=== PATIENT | female | born 1995 | race Caucasian/White ===

== ENCOUNTER 2017-12-07 18:07 | Outpatient (CLI) | payer OTHER, MEDICAID | END 2017-12-07 19:07 | disposition home or self-care (01) | LOC: OB 18:07 → L&D 18:07 → UNDOADMOB 18:07 → OB 18:07 → L&D 19:07 → UNDODISOB 19:07 → EDSTATUS 12-09 07:31 | PROVIDERS: ATTEND Obstetrics & Gynecology | DX: O26.893 Other specified pregnancy related conditions, third trimester (principal); Z3A.32 32 weeks gestation of pregnancy | CPT/HCPCS: 59025; 84112; G0378; G0379; 99213 ==

== ENCOUNTER 2018-01-23 14:33 | Outpatient (CLI) | payer OTHER, MEDICAID ==
[~2018-01-23] VITALS: Ht 167.6 cm; Wt 70.3 kg
[2018-01-23 15:00] VITALS: BP 108/69; Ht 167.6 cm; Wt 70.3 kg
[2018-01-23] MEDS ORDERED: FAMO-67 PO (15:51)
[2018-01-23] MEDS ORDERED: PREN-127 PO (15:51)
== END 2018-01-23 16:00 | disposition home or self-care (01) ==
LOC: L&D 14:33 → OB 14:33 → UNDOADMIN 14:33 → L&D 16:00 → UNDODISIN 16:00 → EDSTATUS 01-30 11:00
PROVIDERS: ATTEND Obstetrics & Gynecology
DX: O36.8130 Decreased fetal movements, third trimester, not applicable or unspecified (principal); Z3A.38 38 weeks gestation of pregnancy
CPT/HCPCS: 99213

== ENCOUNTER 2018-02-05 19:00 | Inpatient (IN) | payer OTHER, MEDICAID ==
[~2018-02-05] VITALS: Ht 167.6 cm; Wt 68.0 kg
[~2018-02-05 19:00] MED LIST: FAMO-67 PO; PREN-127 PO
[2018-02-05] MEDS ORDERED: ceFAZolin(*) 2GM/D5W 50ML 50 ML IVPB PRN (19:02)
[2018-02-05] MEDS ORDERED: FAMOTIDINE(*) 20MG/50ML PREMIX 50 ML IVPB PRN (19:02)
[2018-02-05] MEDS ORDERED: ZOLPIDEM TARTRATE 5 MG TAB PO PRN (19:05)
[2018-02-05] MEDS ORDERED: LIDOCAINE/SOD BICARB 8.4% SYR SC PRN (19:05)
[2018-02-05] MEDS ORDERED: LIDOCAINE 1% LOCAL 300 MG/30ML INJ PRN (19:05)
[2018-02-05] MEDS ORDERED: FLUSH 10 ML SYR IVP PRN (19:05)
[2018-02-05] MEDS ORDERED: fentaNYL CITR 100 MCG/2 ML AMP IVP PRN (19:05)
[2018-02-05] MEDS ORDERED: DINOPROSTONE 10 MG INSERT PV ONE (19:05)
[2018-02-05] MEDS ORDERED: METOCLOPRAMIDE 10 MG/2 ML SDV IVP PRN (19:05)
[2018-02-05 19:30] VITALS: BP 124/79; Ht 167.6 cm; Wt 68.0 kg
[2018-02-05] MEDS: LR(*) 1000 ML BAG 1,000 ML IV PRN (20:22)
[2018-02-05 20:30] LABS: PLATELET COUNT, AUTOMATED 149 K/uL (150-450)
[2018-02-06] MEDS ORDERED: ONDANSETRON 4 MG/2 ML VIAL IVP PRN (03:10)
[2018-02-06] MEDS ORDERED: ACETAMINOPHEN 500 MG TAB PO PRN (03:10)
[2018-02-06] MEDS: LR(*) 1000 ML BAG 1,000 ML IV PRN ×2 (10:27→12:06)
[2018-02-06] MEDS ORDERED: EPIDURAL KEYS XX PRN (10:48)
[2018-02-06] MEDS ORDERED: LIDOCAINE/PF 2% 200MG/10ML AMP 200 MG/10 ML AMPUL EPI PRN (10:50)
[2018-02-06] MEDS ORDERED: FENTANYL/ROPIVACAINE 100 ML BAG EPI PRN (10:50)
[2018-02-06] MEDS ORDERED: LIDO/EPI 2% MPF 1:200,000 20ML EPI PRN (10:50)
[2018-02-06] MEDS ORDERED: fentaNYL CITR 100 MCG/2 ML AMP IT PRN (10:50)
[2018-02-06] MEDS ORDERED: BUPIVACAINE 0.5% INJ 30ML VIAL EPI PRN (10:50)
[2018-02-06] MEDS ORDERED: BUPIVACAINE 0.25% MPF INJ EPI PRN (10:50)
[2018-02-06] MEDS ORDERED: ePHEDrine 25 MG/5 ML DISP.SYR IVP PRN (10:50)
--- NOTE | 2018-02-06 11:36 | Anesthesia OB Pre-Anes Eval ---
History of Present Illness Anesthesia Start Date: Feb 06, 2018 Anesthesia Start Time: 11:00 OB Anesthesia Diagnosis: induction - medical (Post dates. Cervidil induction) EDC: Jan 30, 2018 : 1 Para: 0 Vital Signs: Vital Signs Date Time Temp Pulse Resp B/P (MAP) Pulse Ox O2 Delivery O2 Flow Rate FiO2 02/05/18 19:30 98.2 90 14 124/79 (94) 99 Room Air Pain Ratin Result Diagram: 02/05/182010 Height (Inches): 66.00 Weight (Pounds): 150 BMI Calculated: 24.21 Past Medical History Medical History: other (GERD during ) Attended Childbirth Classes?: Yes Hx Anesthesia Reactions: No Hx Family Anesthesia Reaction: No Home Meds Reported Medications Famotidine (FAMOTIDINE) 20 Mg Tablet, 20 MG PO QDAY Y for REFLUX, TAB 01/23/18 Vits W-Ca,Fe,Fa(<1MG) ( VITAMINS) 1 Each Tablet, 1 EACH PO DAILY, TAB 01/23/18 Allergies: Coded Allergies: No Known Drug Allergies (Unverified , 01/23/18) Anesthesia OB ROS Neurological: No migraines/headaches, No seizures, No neuropathy, No other ENT: Denies Tooth caps, Denies Loose teeth, Denies Chipped teeth, Denies Dentures, Denies Bridges, Denies Retainers, Denies Veneers, Denies Implants, Denies Tongue ring, Denies Other Pulmonary: No asthma, No smoker (pks/day/yrs), No other Airway Class: ll Cardiovascular ROS: No edema, No arrhythmia, No other GI ROS: clear liquids ROS: No Herpes, No STD(s), No Liver Disease, No Renal Disease, No Other Endocrine ROS: No diabetes, No gestational diabetes, No thyroid disorder, No other Musculoskeletal ROS: No low back pain, No low back injury, No scoliosis, No other ASA Classification: 1 Assessment and Plan Anesthesia Plan: JOHANNE SAENZ CRNA Feb 06, 2018 11:36
--- NOTE | 2018-02-06 11:48 | Procedure Note ---
Anesthetic Placement Note Anesthesia Plan: LEB Permit for Anesthesia Signed: Yes Anesthesia Technique: Patient Sitting Anesthesia Prep: Chlorhexidine Interspace: L 4-5 Local Anesthetic: 1% Lidocaine, 25 Gauge Needle Amount Local - cc's: 3 Anesthesia Needle: 17g Touhy/Schliff Anesthesia Attempts: 1 Loss of Resistance: Normal Saline Depth of LINDY (cm): 6 Epidural Needle Placement: No CSF, No Blood, No Parasthesia Catheter Insertion (cm): 4 (taped at 10 cm at skin) Catheter Type: Welch - Spring Wound Epidural Dressing: Tegaderm, Tape, Adhesive [place] Anesthesia Tray: Lot Number ([id number]), Expiration Date (03/28/2019), Reference Number ([id number]) Anesthesia Medications: Epidural Test Dose: 1.5 Lido/Epi (1:200,000), Dose - mL (5mLs in divided doses) , Time (1115), Negative Epidural Loading Dose: 0.2% Ropivicaine, With Fentanyl 2mcg/ml, Dose - ml (5), Time (1122) Epidural Infusion: 0.2% Ropivicaine, With Fentanyl 2mcg/ml, Start Time: (1122) Epidural Pump Setting: Bolus Dose - mL (5), Lockout - Minutes (15), Maintenance Rate - mL/hr (6), Maximum per Hour - mL (21) Complications: None Comment: 100 mcg Fentanyl administered via epidural catheter at 1118. JOHANNE DAVIS CRNA Feb 06, 2018 11:48
--- NOTE | 2018-02-06 13:25 | History & Physical ---
History of Present Illness Age of Patient: 22 : 1 Para or TPAL: 0 EDC per LMP: January 19, 2018 EDC per U/S: Jan 30, 2018 Estimated Gestational Age: 41.0 Chief Complaint Induction of Labor History of Present Illness Pt is a 23 y/o @ 410-0/7 weeks gestation who presents to L&D with a chief complaint of having a scheduled induction of Labor. Pt is scheduled secondary to being 41 weeks gestation. Reports good movement. No vaginal bleeding. No loss of amniotic fluid. History Patient's Blood Type: O Positive Rubella Status: Immune Group B Strep Screen: Negative Obstetrical History: Primigravid Allergies: Coded Allergies: No Known Drug Allergies (Unverified , 01/23/18) Social History: Denies X 3 Med Rec Home Meds Reported Medications Famotidine (FAMOTIDINE) 20 Mg Tablet, 20 MG PO QDAY Y for REFLUX, TAB 01/23/18 Vits W-Ca,Fe,Fa(<1MG) ( VITAMINS) 1 Each Tablet, 1 EACH PO DAILY, TAB 01/23/18 Review of Systems All Systems Reviewed/Normal: Yes, Except as Noted Constitutional: No Fever, No Weight Loss, No Weight Gain, No Chills, No Night Sweats, No Other Neurological: No Syncope, No Confusion, No Weakness, No Dizziness, No Slurred Speech, No Other Eyes: No Vision Change, No Loss of Vision, No Photophobia, No Other ENT: No Hearing Loss, No Sinus Congestion, No Sore Throat, No Ear Ache, No Tinnitus, No Other Cardiovascular: No Chest Pain, No Palpitations, No Orthostatic Hypotension, No Other Respiratory: No Shortness of Breath, No Cough, No Wheezing, No Other Gastrointestinal: No Nausea, No Vomiting, No Diarrhea, No Dysphagia, No Constipation, No Early Satiety, No Hematemesis, No Hematochezia, No Melena, No Abdominal Pain, No Other Genitourinary: No Dysuria, No Hematuria, No Urinary Incontinence, No Other Musculoskeletal: No Pain, No Sprain, No Strain, No Impaired Mobility, No Other Psychiatric: No Depression, No Anxiety, No Other Exam General Exam Vital Signs Vital Signs Date Time Temp Pulse Resp B/P (MAP) Pulse Ox O2 Delivery O2 Flow Rate FiO2 02/05/18 19:30 98.2 90 14 124/79 (94) 99 Room Air General Apperance: Alert/Awake/No Acute Distress Neuro: No Gross deficits Eyes: Normal Extraocular Movement & Vison ENT: Normal Cardiovascular: Regular Rate and Rhythm Respiratory: No Respiratory Distress, Clear to Auscultation Abdomen: Soft, Non-Tender, Non-Distended, Gravid - Non-Tender : Normal Musculoskeletal: No Weakness/Pain Extremities: No Cyanosis,Clubbing or Edema Integumentary: Skin Intact without Lesions or Rash Psychological: Alert & Oriented X3, Appropriate Mood & Affect Vaginal Discharge/Fluid?: Clear Fluid (with amniotomy) Cervical Dialation: 3 Cervical Effacement (%): 75 Cervical Consistency: Soft Station: -2 Presentation: Vertex Uterine Contractions(Q min): 5 Uterine Contraction Strength: Moderate UC Resting Tone: Soft Fetus Feeling Movement?: Yes Estimated Weight(grams): 3400 Heart Tones: 125 Heart Tone Variabilty: Moderate FHT Accelerations: 15X15 FHT Decelerations: None FHT Category: I Medical Decision Making Data Points Result Diagram: 02/05/182010 Pre-Admit Course Medical Record Review: Yes VTE Prophylasis: Adult Deep Vein Thrombosis/Pulmonary: No Assessment and Plan LAW LIBRARIAN Assessment: Stable LAW LIBRARIAN Plan: Routine Labor/Induct Care Problems: (1) 41 weeks gestation of (2) Elective induction of labor planned Assessment & Plan: S/P cervidil overnight. Pt has epidural already because of pain with contractions. Underwent amniotomy with clear amniotic fluid. Plan to start oxytocin. Expect . HAZEL SANTOS DO Feb 06, 2018 13:25
[2018-02-06] MEDS ORDERED: OXYTOCIN 30 UNIT/D5LR 500 ML 500 ML IV PRN ×2 (13:45)
--- NOTE | 2018-02-06 14:08 | Anesthesia Progress Note ---
Progress/Maintenance Anesthesia Note Date: Feb 06, 2018 Anesthesia Note Time: 14:00 Pain Intensity: 0 Pump: On Pump Rate (ML/HR): 5 (decreased from 6mL/hr) Sensory Level: T8(left) and T10(right) Motor Level: Bending Knees-Bilateral Dilatation: 3 Position: Right, Tilt Anesthesia Treatment: Ephedrine admin. by RN for relative hypotension. Improved now. JOHANNE DAVIS CRNA Feb 06, 2018 14:08
--- NOTE | 2018-02-06 16:52 | Anesthesia Progress Note ---
Progress/Maintenance Anesthesia Note Date: Feb 06, 2018 Anesthesia Note Time: 16:50 Pain Intensity: 2 Pump: On Pump Rate (ML/HR): 7 Sensory Level: T10 bilateral Motor Level: Bending Knees-Bilateral Dilatation: 5 Position: Right, Tilt, Semi-Fowlers Anesthesia Treatment: Patient used PCEA and infusion increased to 7mL/hr. VSS. No c/o dizziness JOHANNE DAVIS CRNA Feb 06, 2018 16:52
--- NOTE | 2018-02-06 19:26 | Anesthesia Progress Note ---
Progress/Maintenance Anesthesia Note Date: Feb 06, 2018 Anesthesia Note Time: 19:00 Pain Intensity: 0 Pump: Off Motor Level: Bending Knees-Bilateral Position: Semi-Fowlers Anesthesia Treatment: Epidural infusion off. Patient delivered at 1852 Assessment and Plan Anesthesia Stop Day: Feb 06, 2018 Anesthesia Stop Time: 18:52 JOHANNE DAVIS CRNA Feb 06, 2018 19:25
[2018-02-06] MEDS ORDERED: MAGNESIUM HYDROXIDE* 30ML UDCP PO PRN (19:35)
[2018-02-06] MEDS ORDERED: HYDROCORTISONE 2.5% CR 30GM TB PR PRN (19:35)
[2018-02-06] MEDS ORDERED: ACETAMINOPHEN 325 MG TAB PO PRN (19:35)
[2018-02-06] MEDS ORDERED: APAP/HYDROCODONE 325/5 TAB PO PRN (19:35)
[2018-02-06] MEDS ORDERED: BENZOCAINE 20% 60 ML BTL TP PRN (19:35)
[2018-02-06] MEDS ORDERED: GLYCERIN/WITCH HAZEL LEAF 1 PK TP PRN (19:35)
--- NOTE | 2018-02-06 19:43 | OB Delivery Note ---
Delivery Note Vaginal Delivery Type: Spont. Vaginal Delivery Delivery Date: Feb 06, 2018 Delivery Time: 18:52 Estimated Gestational Age(wks): 41.0 Length of Labor Stage I (hrs): 5 Length of Labor Stage II (hrs): 1 Labor Stage III (minutes): 5 Delivery Anesthesia: Epidural Infant Sex: Male Infant Weight (gms): 3766 (8#4.8) Apgars: 1 Minute (8), 5 Minute (9) Repair Needed: Labial (Bilateral), 2nd Degree Estimated Blood Loss: 500 Delivery Complications: Other (Body cord X 1) HAZEL SANTOS DO Feb 06, 2018 19:43
[2018-02-06] MEDS: DOCUSATE CALCIUM 240 MG CAP PO SCH (21:00)
[2018-02-06] MEDS ORDERED: IBUPROFEN 800 MG TAB PO SCH (22:00)
[2018-02-07 00:15] VITALS: BP 109/71
--- NOTE | 2018-02-07 03:47 | DELIVERY NOTE ---
DELIVERY DATE: February 06, 2018 SURGEON: Richard Larsen DO ANESTHESIA: Epidural. PREOPERATIVE DIAGNOSIS 1. 23-year-old 1, para 0 at 41 and 0/7 weeks gestation by ultrasound. 2. Induction of labor. POSTOPERATIVE DIAGNOSIS 1. 23-year-old 1, para 0 at 41 and 0/7 weeks gestation by ultrasound. 2. Induction of labor. 3. Delivered. PROCEDURE Spontaneous vaginal delivery with repair of second-degree midline laceration and bilateral labia lacerations. FINDINGS Live-born male infant at 1852 on February 06, 2018 with Apgars of 8 and 9 with weight 3766 gm 8#4.8 oz over a second-degree midline laceration, three-vessel cord, intact placenta with body cord x one. ESTIMATED BLOOD LOSS 500 mL. PATHOLOGY None. COMPLICATIONS None known. CONDITION Stable x two, mother and to remain in the [facility]. COUNTS Correct x two for all needles, laps, sponges and instruments. LABOR SUMMARY Patient is a 23-year-old 1, para 0 who presented at 40 and 6/7 weeks gestation for induction of labor secondary to being 41 weeks gestation. Patient was initially checked and found to be 2 cm. she did receive Cervidil for cervical ripening overnight, and did change from 2-3 cm. She was isauro regularly. She was allowed to contract regularly throughout the morning hours without any augmentation. She did finally undergo amniotomy just before noon with clear amniotic fluid. At that point, she was still 3 cm. She had already received an epidural for pain control. With the epidural in place and amniotomy performed, oxytocin was infused to help with hypotonic uterine contractions. Patient achieved an adequate labor pattern with oxytocin that got as high as 10 mU/min. Patient was isauro roughly every 2-3 minutes regularly. She quickly went from 3 cm to 5 cm and then 5 cm to 9.5 cm, felt significant pressure and had the significant urge to push. After coaching by the nursing staff, the delivery team was called and assembled. DELIVERY SUMMARY Patient was placed in the dorsal lithotomy position. She was prepped and draped in the usual sterile manner. Upon maternal pushing, the infant's head delivered in a controlled manner followed by the anterior shoulder with gentle downward motion, the posterior shoulder with gentle upward motion, with the remainder of the infant's body delivering spontaneously. There was a body cord that was reduced after time of delivery. The was then placed on maternal abdomen, where mouth and nose were bulb suctioned. Vigorous cleaning was performed by the nursing staff. After approximately 2 minutes, the cord was clamped x two and cut by the infant's father. The blankets were changed, and the was replaced back on maternal chest. Mother and infant were allowed to continue to hansen. At this point, cord blood gas was obtained. The placenta delivered spontaneously with gentle cord traction. Oxytocin was infused to help with uterine tone, uterus massaged, deemed firm. Upon inspection of the perineum, vagina, cervix and labia, it was noted that there was a second-degree midline laceration as well as bilateral labia lacerations. The second-degree midline laceration was repaired first in the usual manner with a 3-0 Vicryl. The labia lacerations were repaired with a 4-0 Vicryl in a running manner. After the lacerations were repaired, they were inspected and noted to be hemostatic. With lacerations hemostatic, a red rubber straight catheter was used to drain the patient's bladder with approximately 150 mL of kristen-colored urine. The patient was then cleaned. The labor bed was reassembled, and the mother and were allowed to continue to hansen. [facility]
[2018-02-07] MEDS: IBUPROFEN 800 MG TAB PO SCH ×3 (08:10→23:23)
[2018-02-07 08:25] VITALS: BP 102/62
[2018-02-07] MEDS: DOCUSATE CALCIUM 240 MG CAP PO SCH ×2 (08:27→22:09)
[2018-02-07] MEDS: LANOLIN OINT 7 GM TUBE TP PRN (08:27)
[2018-02-07] MEDS ORDERED: DIPHTH/TETANUS/ACEL. PERTUSSIS IM ONLY ONE (09:00)
[2018-02-07] MEDS ORDERED: INFLUENZA VIRUS VAC 0.5 ML SYR IM ONLY ONE (09:00)
[2018-02-07] MEDS ORDERED: MEASLES,MUMP,RUBELLA VAC 0.5ML SUBQ ONE (09:00)
--- NOTE | 2018-02-07 09:34 | OB/GYN Progress Note ---
OB Subjective Progress Notes Subjective Doing well. Pain controlled with oral medications. Tolerating regular diet. Ambulating. Voiding. Normal lochia. No preeclampsia symptoms. OB Objective Physical Exam Vital Signs Date Time Temp Pulse Resp B/P (MAP) Pulse Ox O2 Delivery O2 Flow Rate FiO2 02/07/18 08:25 97.8 99 16 102/62 (75) Room Air 02/05/18 19:30 99 Intake and Output 02/08/18 07:00 Intake Total 1000 ml Balance 1000 ml Intake IV Total 1000 ml General Appearance: Alert/Awake/No Acute Distress Neurological: No Gross deficits Eyes: Normal Extraocular Movement & Vison Cardiovascular: Normal Rhythm & Peripheral Pulses, Regular Rate and Rhythm Respiratory: No Respiratory Distress, Clear to Auscultation Abdomen: Soft, Non-Tender, Non-Distended, Fundus Firm Extremities: No Cyanosis,Clubbing or Edema Integumentary: Skin Intact without Lesions or Rash Psychological: Alert & Oriented X3, Appropriate Mood & Affect Result Diagram: 02/07/18 0524 Assessment and Plan Problems: (1) care and examination immediately after delivery Assessment & Plan: PPD#1 s/p . Routine orders. Anticipate discharge home tomorrow. SIS MEDINA MD Feb 07, 2018 09:34
--- NOTE | 2018-02-07 09:44 | Anesthesia Post Eval Note ---
Anesthesia Post Eval Note Vital Signs Date Time Temp Pulse Resp B/P (MAP) Pulse Ox O2 Delivery O2 Flow Rate FiO2 02/07/18 08:25 97.8 99 16 102/62 (75) Room Air 02/05/18 19:30 99 Pt able to participate in Eval: Yes Cardiovascular Status: Satisfactory Respiratory Status: Satisfactory Pain Managment: Satisfactory PO Nausea/Vomiting: Satisfactory Temperature Management: Satisfactory Mental Status: Satisfactory, Alert, Oriented X3 Post-Op Hydration Status: Satisfactory, Tolerating PO Well, Voiding w/o Difficulty Anesthesia Type: LEB Anesthesia Tolerance: Tolerated well and states she is happy with the care received. JOHANNE DAVIS CRNA Feb 07, 2018 09:44
[2018-02-07 14:00] VITALS: BP 111/66
[2018-02-07 17:45] VITALS: BP 111/64
[2018-02-07 20:15] VITALS: BP 101/59
[2018-02-07] MEDS ORDERED: FAMOTIDINE 20 MG TAB PO SCH (21:00)
[2018-02-08 04:00] VITALS: BP 93/50
--- NOTE | 2018-02-08 07:53 | OB/GYN Progress Note ---
OB Subjective Progress Notes Subjective Doing good this morning. Denies any complaints. Reports lochia is appropriate. Tolerating regular diet. Ambulatory. Voiding with out any difficulty. Pain controlled with Ibuprofen. GI: NEG Nausea, NEG Vomiting, NEG Flatus, NEG Bowel Movement : Voiding Well, Vaginal Bleeding, Moderate Pain: Mild, Tolerating PO Pain Meds Neurological: No Headache, No Other Eyes: No Visual Disturbances OB Objective Physical Exam Vital Signs Date Time Temp Pulse Resp B/P (MAP) Pulse Ox O2 Delivery O2 Flow Rate FiO2 02/08/18 04:00 97.2 82 18 93/50 (64) Room Air 02/05/18 19:30 99 General Appearance: Alert/Awake/No Acute Distress Neurological: No Gross deficits Eyes: Normal Extraocular Movement & Vison Cardiovascular: Normal Rhythm & Peripheral Pulses, Regular Rate and Rhythm Respiratory: No Respiratory Distress, Clear to Auscultation Abdomen: Soft, Non-Tender, Non-Distended, Fundus Firm, Non-Tender Extremities: No Cyanosis,Clubbing or Edema Integumentary: Skin Intact without Lesions or Rash Psychological: Alert & Oriented X3, Appropriate Mood & Affect Result Diagram: 02/07/18 0524 Assessment and Plan SUMATRA OPENER Assessment: Stable SUMATRA OPENER Plan: Discharge Home Today Problems: (1) care and examination immediately after delivery Assessment & Plan: Doing good this morning. Will plan to discharge patient home. Follow up in 3-6 weeks with [facility]. HAZEL SANTOS DO Feb 08, 2018 07:53
[2018-02-08] MEDS ORDERED: IBUP800T37 PO (07:55)
--- NOTE | 2018-02-08 07:59 | OB/GYN Discharge Summary ---
Discharge Summary Reason for Hosp/Final Diag: (1) care and examination immediately after delivery Hospital Course & Plan: Pt presented to L&D for IOL. Underwent cervidil IOL/ ripening. Then proceeded with Oxytocin induction and quickly made it to complete. Delivered with out any difficulty. See delivery note for details. Pt remained in the hospital for 2 days post . Lates Vital Signs Vital Signs Date Time Temp Pulse Resp B/P (MAP) Pulse Ox O2 Delivery O2 Flow Rate FiO2 02/08/18 04:00 97.2 82 18 93/50 (64) Room Air 02/05/18 19:30 99 Weight (Pounds): 150 Result Diagram: 02/07/18 05 Condition: Improved Home Meds Active Scripts Ibuprofen (IBUPROFEN) 800 Mg Tablet, 800 MG PO 0600,1400,2200, #30 TAB 0 Refills Prov:HAZEL SANTOS DO 02/08/18 Reported Medications Famotidine (FAMOTIDINE) 20 Mg Tablet, 20 MG PO QDAY Y for REFLUX, TAB 01/23/18 Vits W-Ca,Fe,Fa(<1MG) ( VITAMINS) 1 Each Tablet, 1 EACH PO DAILY, TAB 01/23/18 [facility] [phone], Dr. Davis [phone] Follow up in: 6 wks PP or PO Discharge Diet: As Tolerates, Resume Prior Admit Diet, Increase Fluid Intake Discharge Activity: As Tolerates, Pelvic Rest HAZEL SANTOS DO Feb 08, 2018 07:59
[2018-02-08] MEDS: IBUPROFEN 800 MG TAB PO SCH (08:00)
[2018-02-08 08:17] VITALS: BP 95/54
[2018-02-08] MEDS: DOCUSATE CALCIUM 240 MG CAP PO SCH (08:28)
[2018-02-08] MEDS: LANOLIN OINT 7 GM TUBE TP PRN (10:15)
== END 2018-02-08 10:20 | disposition home or self-care (01) | DRG 775 ==
LOC: OB 19:00
PROVIDERS: ADMIT Student in an Organized Health Care Education/Training Program; ATTEND Student in an Organized Health Care Education/Training Program
PROC: 3E0P7VZ Introduction of Hormone into Female Reproductive, Via Natural or Artificial Opening (ICD-10-PCS; 2018-02-05)
PROC: 10E0XZZ Delivery of Products of Conception, External Approach (ICD-10-PCS; principal; 2018-02-06)
PROC: 0KQM0ZZ Repair Perineum Muscle, Open Approach (ICD-10-PCS; 2018-02-06)
PROC: 10907ZC Drainage of Amniotic Fluid, Therapeutic from Products of Conception, Via Natural or Artificial Opening (ICD-10-PCS; 2018-02-06)
DX: O48.0 Post-term pregnancy (principal); O62.2 Other uterine inertia; O69.82X0 Labor and delivery complicated by other cord entanglement, without compression, not applicable or unspecified; O70.1 Second degree perineal laceration during delivery; Z3A.41 41 weeks gestation of pregnancy; Z37.0 Single live birth
CPT/HCPCS: 36415; 85025; 85027; 86850; 86900; 86901; J2405; J2590; J3010; J7120